=== PATIENT | female | born 1975 | race Caucasian/White ===

== ENCOUNTER 2024-02-10 07:13 | Emergency (ER) | payer OTHER ==
[~2024-02-10] VITALS: Ht 160 cm; Wt 91.3 kg
[2024-02-10 07:20] VITALS: BP 125/99; PULSE 76; RESP 16; TEMP 97.1; O2SAT 99
[2024-02-10 09:21] VITALS: BP 125/75; PULSE 61; RESP 20; TEMP 97.8; O2SAT 100
== END 2024-02-10 09:21 | disposition home or self-care (01) ==
LOC: MED 07:13
DX: L02.212 Cutaneous abscess of back [any part, except buttock and flank] (principal)
CPT/HCPCS: 99284

== ENCOUNTER 2024-02-12 07:05 | Emergency (ER) | payer OTHER ==
[~2024-02-12] VITALS: Ht 160 cm; Wt 91.6 kg
[2024-02-12 07:19] VITALS: BP 113/60; PULSE 79; RESP 17; TEMP 97.7; O2SAT 98
[2024-02-12] MEDS ORDERED: SULF-59 PO (07:34)
== END 2024-02-12 07:40 | disposition home or self-care (01) ==
LOC: MED 07:05
DX: Z48.01 Encounter for change or removal of surgical wound dressing (principal); Z79.899 Other long term (current) drug therapy
CPT/HCPCS: 99283

== ENCOUNTER 2024-03-26 06:22 | Day surgery (SDC) | payer OTHER ==
[~2024-03-26] VITALS: Ht 162.6 cm; Wt 90.7 kg
[~2024-03-26 06:22] MED LIST: SULF-59 PO
[2024-03-26] MEDS ORDERED: SEVOFLURANE 250 ML BTL INH ONE (07:22)
[2024-03-26] MEDS ORDERED: LIDOCAINE 2% 100 MG/5 ML SYR IVP ONE (07:40)
[2024-03-26] MEDS ORDERED: fentaNYL citrate 0.05 MG/ML VIAL ONE ×2 (07:40→08:04)
[2024-03-26] MEDS ORDERED: HYDR-5080 PO (07:50)
[2024-03-26] MEDS ORDERED: ACET-503 PO (07:56)
[2024-03-26] MEDS: ceFAZolin 2,000 MG VIAL ONE (08:02)
[2024-03-26] MEDS ORDERED: PROPOFOL 200 MG/20 ML VIAL IV ONE (08:11)
[2024-03-26] MEDS ORDERED: METOCLOPRAMIDE 10 MG/2 ML INJ VIAL ONE (08:12)
[2024-03-26] MEDS ORDERED: SUCCINYLCHOLINE CHLORIDE 200 MG/10 ML VIAL IVP ONE (08:12)
[2024-03-26] MEDS ORDERED: ONDANSETRON 4 MG/2 ML VIAL ONE (08:12)
[2024-03-26] MEDS ORDERED: DEXAMETHASONE 4 MG/ML VIAL ONE (08:12)
[2024-03-26] MEDS ORDERED: MEPERIDINE 25 MG/ML SYR IVP PRN (08:30)
[2024-03-26] MEDS ORDERED: HYDROmorphone 1 MG/ML AMP IVP PRN (08:30)
[2024-03-26] MEDS: BUPIVACAINE-MPF 0.25% 30 ML VIAL INJ ONE (08:30)
[2024-03-26] MEDS ORDERED: ONDANSETRON 4 MG/2 ML VIAL IVP PRN (08:30)
[2024-03-26] MEDS: LIDOCAINE/EPI 1% 1:100000 20 ML VIAL INJ ONE (08:30)
[2024-03-26] MEDS ORDERED: HYDROcodone/APAP 5/325 MG 1 TAB TAB PO PRN (08:35)
[2024-03-26] MEDS ORDERED: MORPHINE SULFATE 4 MG/ML SYR IV PRN (08:35)
[2024-03-26] MEDS ORDERED: MORPHINE SULFATE 2 MG/ML SYR IVP PRN (08:35)
[2024-03-26] MEDS ORDERED: ONDANSETRON 4 MG/2 ML VIAL IV PRN (08:35)
== END 2024-03-26 11:50 | disposition home or self-care (01) ==
LOC: MDS 06:22 → MMU 06:30 → MDS 11:50
PROVIDERS: ATTEND Surgery
DX: L72.3 Sebaceous cyst (principal); Z98.891 History of uterine scar from previous surgery; Z98.890 Other specified postprocedural states
CPT/HCPCS: 11403; 12032; 87070; 87075; 87205; J0330; J1100; J2001; J2003; J2405; J2704; J2765; J3010; J3490